=== PATIENT | male | born 1990 | race Caucasian/White ===

== ENCOUNTER 2017-02-03 11:23 | Emergency (ER) | payer SELFPAY ==
[~2017-02-03] VITALS: Ht 170.2 cm; Wt 91.3 kg
[~2017-02-03 11:23] MED LIST: CLEOCIN300 MG PO; CUBICIN500 MG/10 IV; FLEXERIL10 MG PO; HYDROCHLOROTHIA25 MG PO; LISINOPRIL20 MG PO; MOTRIN800 MG PO; NOHOMEMEDS; NORCO 5/3251 TABLET PO; PERCOCET 5/31 TABLET PO; Percocet 5/325,Endoc PO; TESSALON200 MG PO; ZITHROMAX Z-PA250 MG PO
[2017-02-03 11:51] VITALS: BP 147/83
== END 2017-02-03 13:57 | disposition home or self-care (01) ==
LOC: EME 11:23
DX: S80.02XA Contusion of left knee, initial encounter (principal); W10.9XXA Fall (on) (from) unspecified stairs and steps, initial encounter; F17.200 Nicotine dependence, unspecified, uncomplicated
CPT/HCPCS: 73564; 99281; 99283